=== PATIENT | male | born 1945 | race Caucasian/White ===

== ENCOUNTER 2024-04-25 09:27 | Emergency (ER) | payer OTHER ==
[2024-04-25] MEDS ORDERED: FENTANYL CITR 100 MCG/2 ML ONE ×2 (09:49→14:17)
[2024-04-25 09:56] LABS: Absolute Eosinophils 0.1 K/uL (0-0.5); Absolute Lymphocytes (CBC) 0.6 K/uL (0.7-4.9); Absolute Monocytes 0.7 K/uL (0.1-1.3); Absolute Neutrophil 7.9 K/uL (1.8-8.0); Basophils % 0.4 % (0-1.3); Eosinophils % 0.8 % (0-4.4); Hematocrit 33.9 % (39.6-49.0); Hemoglobin 11.2 g/dL (13.6-17.9); Lymphocytes % 6.7 % (15.3-44.8); MCH 32.4 pg (27.0-35.0); MCHC 32.9 g/dL (32.0-36.0); MCV 98.5 fL (80-100); MPV 7.1 fL (7.6-11.3); Neutrophils % 85.1 % (41.7-73.7); Platelets 277 thou/uL (152-406); RBC Red Blood Cell Count 3.44 M/uL (4.33-5.43); Red Cell Distribution Width 18.6 % (12.1-15.2)
[2024-04-25 09:58] LABS: Specific Gravity 1.008 (1.005-1.030); Sqamous Epithelial None Seen /HPF (None Seen); Urine Bacteria None Seen /HPF (<20); Urine Bilirubin NEGATIVE (Negative); Urine Blood Negative (Negative); Urine Clarity Clear (Clear); Urine Color Light-Yellow (Yellow); Urine Culture Reflex Order NOT NEEDED; Urine Glucose 1+ (Negative); Urine Ketones NEGATIVE (Negative); Urine Micro Reflex YN NO BILL MICROSCOPIC; Urine Nitrite NEGATIVE (Negative); Urine Protein NEGATIVE (Negative); Urine RBC <5 /HPF (None Seen); Urine Urobilinogen Normal (Normal); Urine WBC <5 /HPF (<5)
[2024-04-25 10:21] LABS: Albumin 2.5 g/dL (3.4-5.0); Albumin/Globulin Ratio 0.8 (1.1-1.8); Anion Gap 8.5 mEq/L (5.0-15.0); Bilirubin Total 0.7 mg/dL (0.2-1.0); Globulin 3.3 g/dL (2.3-3.5); Potassium 3.5 mEq/L (3.5-5.1); Protein, Total 5.8 g/dL (6.4-8.2)
--- NOTE | 2024-04-25 10:25 | RAD REPORT ---
EXAM DESCRIPTION: CT - Stone Protocol - 04/25/2024 10:01 am CLINICAL HISTORY: Flank pain. urine retention COMPARISON: <Comparisons> TECHNIQUE: Axial images were obtained without oral or IV contrast. Lack of contrast limits solid org an and vascular assessment. The [id number] spans the entirety of the system partially obscuring uppermost abdomen and lung bases. Coronal reformatted images were obtained and reviewed. All CT scans are performed using dose optimization technique as appropriate and may include automated exposure control or mA/KV adjustment according to patient size. FINDINGS: The lower lung conley are clear. Prominent gastric distention. Imaged portions of the liver and spleen show no suspicious findings on non-contrast imaging. The panc reas and adrenal glands are normal. No pathologic lymphadenopathy in the abdomen or pelvis. Punctate calculus inferior right kidney. 3 cm cyst is present cortex right kidney. No hydronephrosis. No bowel obstruction, free air, free fluid or abscess. Normal appendix noted.Aortoiliac atheroscleros is. Urinary bladder decompressed by means of Arroyo catheter. Moderate lumbar degenerative changes. IMPRESSION: Punctate calculus inferior right kidney. No hydronephrosis. Probable cyst measuring 3 cm cortex right kidney. This is incompletely assessed due to lack of IV con trast.
[2024-04-25 10:41] LABS: Blood Morphology Comment NOT SEEN (NOT SEEN); Platelet Estimate ADEQ; White Blood Cell Scan OK (OK)
[2024-04-25] MEDS ORDERED: NA CHLORIDE 0.9% 1,000 ML ONE (10:46)
--- NOTE | 2024-04-25 11:57 | EDPHYS ---
Physician Documentation [facility] Name: Sha Sierra Age: 79 yrs Sex: Male : 1945 Arrival Date: 04/25/2024 Time: 09:27 Bed 8 Private MD: ED Physician Trevin Corral HPI: 04/25 09:28 This 79 yrs old Male presents to ER via Unassigned with complaints of Urinary Retention.cp 09:28 The patient presents with urinary symptoms, retention. Onset: The symptoms/episode cp began/occurred this morning. Associated signs and symptoms: Pertinent negatives: constipation, diarrhea, fever, vomiting. Severity of symptoms: in the emergency department the symptoms are unchanged. Historical: - Allergies: 09:57 No Known Allergies; bp - PMHx: 09:57 Hypertensive disorder; Coronary atherosclerosis; Atrial fibrillation; bp Hypercholesterolemia; Congestive heart failure; - Immunization history:: Adult Immunizations up to date. - Infectious Disease History:: Denies. - Social history:: Smoking status: Patient denies any tobacco usage or history of. ROS: 09:32 Constitutional: Negative for body aches, chills, fever, cp 09:32 : Positive for urine retention, 09:32 Abdomen/GI: Negative for vomiting, diarrhea, constipation, cp 09:32 Neuro: Negative for altered mental status, headache, weakness, cp Exam: 09:35 Constitutional: The patient appears in no acute distress, alert, awake, cp non-diaphoretic, non-toxic, well developed, well nourished, 09:35 Head/Face: Normocephalic, atraumatic. cp 09:35 Eyes: Periorbital structures: appear normal, Conjunctiva: normal, no exudate, no injection, Sclera: no appreciated abnormality, Lids and lashes: appear normal, bilaterally, 09:35 ENT: External ear(s): are unremarkable, Nose: is normal, Mouth: Lips: moist, Oral mucosa: moist, Posterior pharynx: is normal, airway is patent, no erythema, no exudate, 09:35 Chest/axilla: Inspection: normal, 09:35 Cardiovascular: Rate: normal, Rhythm: regular, Edema: is not appreciated, 09:35 Respiratory: the patient does not display signs of respiratory distress, Respirations: normal, no use of accessory muscles, no retractions, labored breathing, is not present, Breath sounds: are clear throughout, 09:35 Abdomen/GI: Inspection: abdomen appears normal, Bowel sounds: active, all quadrants, Palpation: soft, in all quadrants, moderate abdominal tenderness, in the suprapubic area, rebound tenderness, is not appreciated, 09:35 Back: CVA tenderness, is absent, 09:35 Neuro: Orientation: to person, place \T\ time. Mentation: is normal, Vital Signs: 09:34 BP 102 / 68; Pulse 89; Resp 16; Temp 97.6; Pulse Ox 98% ; bp 10:56 BP 87 / 52; Pulse 85; Resp 16; Pulse Ox 98% ; bp 11:53 BP 133 / 72; Pulse 85; Resp 16; Pulse Ox 98% ; bp 13:40 BP 112 / 65; Pulse 79; Resp 18 S; Pulse Ox 100% on R/A; aa5 MDM: 09:32 Patient medically screened. 09:52 Differential diagnosis: UTI, urinary retention, prostatitis, urethritis. 04/25 09:36 Order name: Urinalysis W/Microscopic; Complete Time: 10:07 EDMS 04/25 10:07 Interpretation: Normal except: UGLUC 1+. 04/25 09:36 Order name: CBC with Diff; Complete Time: 10:46 04/25 10:07 Interpretation: Normal except: RBC 3.44; HGB 11.2; HCT 33.9; RDW 18.6; MPV 7.1; RUDI% cp 85.1; LYM% 6.7; LYMA 0.6. 04/25 09:36 Order name: CMP; Complete Time: 10:31 04/25 10:32 Interpretation: Normal except: GLUC 114; BUN 25; CRE 1.54; GFR 46; TP 5.8; ALB 2.5; A/G cp 0.8. 04/25 10:02 Order name: CBC Smear Scan; Complete Time: 10:46 EDMS 04/25 10:46 Interpretation: Reviewed. 04/25 09:36 Order name: CT Stone Protocol; Complete Time: 10:31 04/25 09:31 Order name: Arroyo; Complete Time: 09:52 04/25 09:36 Order name: IV; Complete Time: 09:52 04/25 11:50 Order name: Vital Signs: please update blood pressure; Complete Time: 11:53 cp Administered Medications: 09:52 Drug: fentaNYL (PF) IVP 25 mcg IVP once Route: IVP; Site: right antecubital; bp 11:53 Follow up: Response: No adverse reaction bp 10:49 Drug: NS 0.9% IV 1000 ml IV at 999 ml/hr Per protocol Route: IV; Rate: 999 ml/hr; Site: aa5 right antecubital; 13:30 Follow up: IV Status: Completed infusion; IV Intake: 1000ml aa5 13:07 Drug: Hydrocodone-Acetaminophen PO (7.5 mg-325 mg) 1 tabs PO once; RASS on ADMIN: bp Combtv4, Very Agttd3, Agttd2, Rstlss1, AlertClm0, Drwsy-1, Lt Sdtn-2, Mod Sdtn-3, Dp Sdtn-4, UnArsble-5 Route: PO; 13:07 Follow up: Response: No adverse reaction bp 14:20 Drug: fentaNYL (PF) IM 25 mcg IM once Route: IM; Site: right deltoid; aa5 14:21 Follow up: Response: No adverse reaction; Medication administered at discharge. aa5 Disposition Summary: 04/25/24 11:57 Discharge Ordered Notes: Location: Home cp Problem: new cp Symptoms: have improved cp Condition: Stable cp Diagnosis - Retention of urine, unspecified cp Followup: cp - With: Clement Sierra MD - When: 1 week - Reason: Recheck today's complaints Discharge Instructions: - Discharge Summary Sheet cp - Indwelling Urinary Catheter Care, Adult cp - Acute Urinary Retention, Male cp Forms: - Medication Reconciliation Form cp - Antibiotic Education cp - Prescription Opioid Use cp - Patient Portal Instructions cp - Leadership Thank You Letter cp Addendum: 05/06/2024 04:46 Co-signature as Attending Physician, Trevin Corral MD I agree with the assessment and c chavez plan of care. Signatures: Dispatcher [employer] Trevin Bejarano MD MD cha Calderon, Audri, RN RN aa5 Trevin Dang PA PA cp Clai Stokes RN RN bp Corrections: (The following items were deleted from the chart) 04/25 09:34 09:32 Urine Microscopic+U.LAB.BRZ ordered. EDMS EDMS 09:34 09:32 Urinalysis+U.LAB.BRZ ordered. EDMS EDMS
--- NOTE | 2024-04-25 11:57 | ER ---
Nurse's Notes [facility] Name: Sha Sierra Age: 79 yrs Sex: Male : 1945 Arrival Date: 04/25/2024 Time: 09:27 Bed 8 Private MD: Diagnosis: Retention of urine, unspecified Presentation: 04/25 09:34 Chief complaint: EMS states: URINARY RETENTION SINCE 0200. Coronavirus screen: At this bp time, the client does not indicate any symptoms associated with coronavirus-19. Ebola Screen: No symptoms or risks identified at this time. Initial Sepsis Screen: Does the patient meet any 2 criteria? No. Patient's initial sepsis screen is negative. Does the patient have a suspected source of infection? No. Patient's initial sepsis screen is negative. Risk Assessment: Do you want to hurt yourself or someone else? Patient reports no desire to harm self or others. Onset of symptoms was April 25, 2024 at 02:00. Care prior to arrival: Glucose check: 87. 09:34 Method Of Arrival: EMS: [facility] bp 09:34 Acuity: BISI 3 bp Triage Assessment: 09:36 General: Appears uncomfortable, Behavior is appropriate for age. Pain: Complains of bp pain in pelvis. EENT: No deficits noted. Neuro: No deficits noted. Cardiovascular: No deficits noted. Respiratory: No deficits noted. GI: No signs and/or symptoms were reported involving the gastrointestinal system. : Reports inability to void. Derm: No deficits noted. Musculoskeletal: No deficits noted. Historical: - Allergies: 09:57 No Known Allergies; bp - PMHx: 09:57 Hypertensive disorder; Coronary atherosclerosis; Atrial fibrillation; bp Hypercholesterolemia; Congestive heart failure; - Immunization history:: Adult Immunizations up to date. - Infectious Disease History:: Denies. - Social history:: Smoking status: Patient denies any tobacco usage or history of. Screenin:53 [facility] ED Fall Risk Assessment (Adult) History of falling in the last 3 months, bp including since admission No falls in past 3 months (0 pts) Confusion or Disorientation No (0 pts) Intoxicated or Sedated No (0 pts) Impaired Gait No (0 pts) Mobility Assist Device Used No (0 pt) Altered Elimination No (0 pt) Score/Fall Risk Level 0 - 2 = Low Risk. Abuse screen: Denies threats or abuse. Denies injuries from another. Nutritional screening: No deficits noted. Tuberculosis screening: No symptoms or risk factors identified. Assessment: 09:35 General: Appears uncomfortable, Behavior is appropriate for age. Neuro: Level of bp Consciousness is awake, alert, obeys commands, Oriented to Appropriate for age. : Bladder is distended. 10:49 Reassessment: Patient is alert, oriented x 3, equal unlabored respirations, skin aa5 warm/dry/pink. 11:53 Reassessment: Patient appears in no apparent distress at this time. Patient is alert, bp oriented x 3, equal unlabored respirations, skin warm/dry/pink. 12:29 Reassessment: Report given to Froylan at [facility], transportation will [facility] be set up by [facility] and Froylan will call back with ETA. . 13:30 Reassessment: Patient is alert, oriented x 3, equal unlabored respirations, skin aa5 warm/dry/pink. 13:40 Reassessment: Pt requesting pain medication prior to transportation back to [address], provider was notified. EMS currently at bedside. . 14:20 Reassessment: Patient is alert, oriented x 3, equal unlabored respirations, skin aa5 warm/dry/pink. Vital Signs: 09:34 BP 102 / 68; Pulse 89; Resp 16; Temp 97.6; Pulse Ox 98% ; bp 10:56 BP 87 / 52; Pulse 85; Resp 16; Pulse Ox 98% ; bp 11:53 BP 133 / 72; Pulse 85; Resp 16; Pulse Ox 98% ; bp 13:40 BP 112 / 65; Pulse 79; Resp 18 S; Pulse Ox 100% on R/A; aa5 ED Course: 09:28 Patient arrived in ED. bp 09:28 Trevin Dang PA is PHCP. cp 09:28 Trevin Corral MD is Attending Physician. cp 09:34 Arm band placed on. bp 09:35 Triage completed. bp 09:48 Initial lab(s) drawn, by me, sent to lab. Inserted saline lock: 20 gauge in right aa5 antecubital area, using aseptic technique. Blood collected. Flushed with 10 mL NS. 09:52 Urine collected: Arroyo catheter specimen, clear, Amount Returned: 450mL. Arroyo cath bp inserted, using sterile technique, 16 Fr., by co, balloon inflated, to gravity drainage, urine specimen collected. 09:53 Patient has correct armband on for positive identification. bp 09:57 Cali Stokes, MIKE is Primary Nurse. bp 10:03 CT Stone Protocol In Process Unspecified. EDMS 10:49 Bed in low position. Call light in reach. Side rails up X2. Lights dimmed. Pillow given.aa5 11:57 Clement Sierra MD is Referral Physician. cp 13:09 Removal of peripheral IV. Catheter intact, dressing applied. oh1 13:30 IV discontinued, intact, bleeding controlled, No redness/swelling at site. Pressure aa5 dressing applied. 13:30 No provider procedures requiring assistance completed. aa5 Administered Medications: 09:52 Drug: fentaNYL (PF) IVP 25 mcg IVP once Route: IVP; Site: right antecubital; bp 11:53 Follow up: Response: No adverse reaction bp 10:49 Drug: NS 0.9% IV 1000 ml IV at 999 ml/hr Per protocol Route: IV; Rate: 999 ml/hr; Site: aa5 right antecubital; 13:30 Follow up: IV Status: Completed infusion; IV Intake: 1000ml aa5 13:07 Drug: Hydrocodone-Acetaminophen PO (7.5 mg-325 mg) 1 tabs PO once; RASS on ADMIN: bp Combtv4, Very Agttd3, Agttd2, Rstlss1, AlertClm0, Drwsy-1, Lt Sdtn-2, Mod Sdtn-3, Dp Sdtn-4, UnArsble-5 Route: PO; 13:07 Follow up: Response: No adverse reaction bp 14:20 Drug: fentaNYL (PF) IM 25 mcg IM once Route: IM; Site: right deltoid; aa5 14:21 Follow up: Response: No adverse reaction; Medication administered at discharge. aa5 Medication: 13:40 VIS not applicable for this client. aa5 Intake: 13:30 IV: 1000ml; Total: 1000ml. aa5 Outcome: 11:57 Discharge ordered by . cp 13:40 Discharged to [facility]. Report called to Froylan rosario 13:40 Condition: stable 13:40 Discharge instructions given to patient, [facility], via EMS arranged by [facility]. Instructed on discharge instructions, follow up and referral plans. Demonstrated understanding of instructions, follow-up care, 14:21 Patient left the ED. aa5 Signatures: Dispatcher [employer] Genny Barr, RN RN aa5 Trevin Dang PA PA cp Peltier, Brian, RN RN bp Maryana Colon oh1 Corrections: (The following items were deleted from the chart) 14:36 14:33 Patient left the ED. aa5 aa5
[2024-04-25] MEDS ORDERED: HYDROCODONE/APAP 7.5/325 MG TAB ONE (13:05)
[2024-04-25 14:53] VITALS: TEMP 97.6; O2SAT 98
[2024-04-25 14:56] VITALS: BP 133/72
== END 2024-04-25 14:33 | disposition home or self-care (01) ==
LOC: ER 09:27
DX: R33.9 Retention of urine, unspecified (principal)
CPT/HCPCS: 96361; 85025; 81001; 36415; 80053; 76377; 74176; 51702; 96372; 96374; 99285; J3010 ×2; J7030